=== PATIENT | male | born 1970 | race Two or more races ===

== ENCOUNTER 2018-03-17 18:01 | Emergency (ER) | payer OTHER ==
[~2018-03-17] VITALS: Ht 167.6 cm; Wt 84.0 kg
[2018-03-17] MEDS ORDERED: METO-467 PO (19:15)
[2018-03-17] MEDS ORDERED: acetaminophen 325mg tablet PO ONE (19:15)
[2018-03-17] MEDS ORDERED: naproxen 500mg tablet PO ONE (19:15)
[2018-03-17] MEDS ORDERED: metoprolol tartrate 50mg tablet PO ONE (19:15)
[2018-03-17] MEDS ORDERED: metoprolol tartrate 25mg tablet PO ONE (19:20)
[2018-03-17] MEDS ORDERED: SUMAtriptan succ. 6 MG/0.5ml vial SQ ONE (19:55)
[2018-03-17 20:08] VITALS: BP 123/75
== END 2018-03-17 20:10 | disposition home or self-care (01) ==
LOC: ER 18:02
DX: I10 Essential (primary) hypertension (principal); R51 Headache; Z79.899 Other long term (current) drug therapy
CPT/HCPCS: 70450; 93005; 96372; 99284; J3030

== ENCOUNTER 2020-01-05 09:03 | Emergency (ER) | payer OTHER ==
[~2020-01-05] VITALS: Ht 167.6 cm; Wt 93.2 kg
[~2020-01-05 09:03] MED LIST: METO-467 PO
[2020-01-05 09:27] LABS: BASOPHILS # (AUTO) 0.1 X10'3 (0-0.2); EOSINOPHILS # (AUTO) 0.1 X10'3 (0-0.9); EOSINOPHILS % (AUTO) 1.4 % (0-6); HEMATOCRIT 48.4 % (42.0-52.0); HEMOGLOBIN 16.6 g/dl (14.0-17.9); LYMPHOCYTES # (AUTO) 1.5 X10'3 (1.1-4.8); LYMPHOCYTES % (AUTO) 24.7 % (21-51); MEAN CORPUSCULAR HEMOGLOBIN 29.6 PG (27.0-31.0); MEAN CORPUSCULAR HGB CONC 34.3 g/dL (33.0-36.5); MEAN CORPUSCULAR VOLUME 86.2 FL (78-98); MONOCYTES # (AUTO) 0.4 X10'3 (0-0.9); MONOCYTES % (AUTO) 6.4 % (2-12); NEUTROPHILS # (AUTO) 3.9 X10'3 (1.8-7.7); NEUTROPHILS % (AUTO) 66.5 % (42-75); PLATELET COUNT 256 X10'3 (140-440); RED BLOOD COUNT 5.61 X10'6 (4.70-6.10); RED CELL DISTRIBUTION WIDTH 13.8 % (11.5-14.5); WHITE BLOOD COUNT 5.9 X10'3 (4.5-11.0)
[2020-01-05 10:14] LABS: ALANINE AMINOTRANSFERASE 28 U/L (12-78); ALBUMIN 3.8 G/DL (3.4-5.0); ALKALINE PHOSPHATASE 89 IU/L (46-116); ANION GAP 6 (8-16); ASPARTATE AMINO TRANSFERASE 15 U/L (10-37); BILIRUBIN,TOTAL 0.7 MG/DL (0.1-1.0); BLOOD UREA NITROGEN 20 MG/DL (7-18); CALCIUM 8.3 MG/DL (8.5-10.1); CHLORIDE 106 MMOL/L (99-107); CREATININE 0.87 MG/DL (0.60-1.10); GLUCOSE 107 MG/DL (70-104); POTASSIUM 4.2 MMOL/L (3.5-5.1); SODIUM 141 MMOL/L (135-145); TOTAL CARBON DIOXIDE 29.4 MMOL/L (24-32); TOTAL PROTEIN 7.8 G/DL (6.4-8.2); eGFR > 90 ML/MIN
[2020-01-05] MEDS ORDERED: aspirin 81mg tab.chew PO ONE (10:40)
[2020-01-05 11:22] VITALS: BP 126/69
== END 2020-01-05 11:39 | disposition home or self-care (01) ==
LOC: ER 09:04
DX: R07.89 Other chest pain (principal); J84.10 Pulmonary fibrosis, unspecified; F41.9 Anxiety disorder, unspecified; Z79.899 Other long term (current) drug therapy
CPT/HCPCS: 36415; 71045; 80053; 83880; 84484; 85025; 93005; 99285

== ENCOUNTER 2022-12-25 18:50 | Emergency (ER) | payer OTHER ==
[~2022-12-25] VITALS: Ht 167.6 cm; Wt 88.6 kg
[2022-12-25 21:10] VITALS: BP 145/78
== END 2022-12-25 21:12 | disposition home or self-care (01) ==
LOC: ER 18:51
DX: G47.00 Insomnia, unspecified (principal); G89.29 Other chronic pain; M54.9 Dorsalgia, unspecified; I10 Essential (primary) hypertension; Z79.899 Other long term (current) drug therapy
CPT/HCPCS: 93005; 99283